=== PATIENT | female | born 1975 | race Two or more races ===

== ENCOUNTER 2017-12-30 20:06 | Emergency (ER) | payer MEDICAID ==
[~2017-12-30] VITALS: Ht 172.7 cm; Wt 117.9 kg
[~2017-12-30 20:06] MED LIST: ALPR0.25 PO; BENA20TA14 PO; GABA300C PO; HCTZ25T; INSLISPI SC; METF-370 PO; TRAM50TA2 PO
[2017-12-30 20:39] VITALS: BP 157/90
[2017-12-30 21:26] LABS: Basophils # (auto) 0.1 uL; Eosinophils # (auto) 0.4 uL; Eosinophils % (auto) 3.6 % (0.0-7.0); Hematocrit 37.9 % (36.0-46.0); Hemoglobin 12.4 g/dL (12.2-16.2); Lymphocytes # (auto) 1.6 uL; Lymphocytes % (auto) 15.1 % (10.0-50.0); Mean Corpuscular Hemoglobin 27.7 pg (28.0-32.0); Mean Corpuscular Hgb Conc. 32.7 g/dL (32.0-36.0); Mean Corpuscular Volume 84.8 fL (80.0-100.0); Monocytes # (auto) 0.7 uL; Monocytes % (auto) 6.7 % (0.0-12.0); Neutrophils # (auto) 7.7 uL; Neutrophils % (auto) 73.6 % (37.0-80.0); Nucleated Red Blood Cells % 0.1 %; Platelet Count (auto) 301 10^3/uL (140-450); Red Blood Cells 4.46 10^6/uL (4.0-5.20); Red Cell Distribution Width 14.3 % (11.8-14.3); White Blood Cell 10.4 10^3/uL (4.4-10.8)
[2017-12-30 21:40] LABS: Albumin 2.6 g/dL (3.4-5.0); BUN/Creatinine Ratio 13.3; Calcium 8.6 mg/dL (8.5-10.1)
[2017-12-30 21:41] LABS: Potassium 4.8 mmol/L (3.5-5.1)
[2017-12-30 21:42] LABS: Bilirubin, Total 0.2 mg/dL (0.2-1.0); Total Protein 8.1 g/dL (6.4-8.2)
[2017-12-30 21:52] LABS: Urine Bacteria FEW /hpf (None Seen); Urine Blood TRACE /uL (Negative); Urine WBC 7 /hpf (0 - 5)
== END 2017-12-31 01:29 | disposition left against medical advice (07) ==
LOC: ER 20:12
DX: M79.671 Pain in right foot (principal); Z53.21 Procedure and treatment not carried out due to patient leaving prior to being seen by health care provider
CPT/HCPCS: 36415; 80053; 81001; 81025; 82010; 82962; 83605; 85025; 87040

== ENCOUNTER 2018-03-02 14:36 | Emergency (ER) | payer MEDICAID ==
[~2018-03-02] VITALS: Ht 172.7 cm; Wt 117.9 kg
[2018-03-02 14:48] VITALS: BP 151/75
== END 2018-03-02 17:34 | disposition home or self-care (01) ==
LOC: ER 14:36
DX: Z95.9 Presence of cardiac and vascular implant and graft, unspecified (principal); J45.909 Unspecified asthma, uncomplicated; E11.9 Type 2 diabetes mellitus without complications; I10 Essential (primary) hypertension; Z88.0 Allergy status to penicillin
CPT/HCPCS: 71046; 82962

== ENCOUNTER 2018-03-24 15:03 | Emergency (ER) | payer MEDICAID ==
[~2018-03-24] VITALS: Ht 172.7 cm; Wt 117.9 kg
[2018-03-24 15:09] VITALS: BP 152/103
[2018-03-24] MEDS ORDERED: IPRATROPIUM BROM 0.5 MG/2.5ML INH SOL NEB ONE ×2 (15:15→15:30)
[2018-03-24] MEDS ORDERED: ALBUTEROL SULF 2.5 MG/0.5ML(0.5%) NEB SOLN NEB ONE (15:15)
[2018-03-24] MEDS ORDERED: methylPREDNISolone SOD SUCC 125 MG/2 ML VL IM ONE (15:15)
[2018-03-24] MEDS ORDERED: methylPREDNISolone SOD SUCC 125 MG/2 ML VL ONE (15:15)
[2018-03-24] MEDS ORDERED: KETOROLAC TROMETH 60MG/2ML VIAL IM ONE (16:45)
[2018-03-24] MEDS ORDERED: cefTRIAXone SOD 1,000 MG VL IM ONE (16:45)
[2018-03-24 16:53] LABS: Urine Bacteria MOD /hpf (None Seen); Urine Blood 1+ /uL (Negative); Urine Specific Gravity 1.016 (1.001-1.035); Urine WBC 46 /hpf (0 - 5); Urine WBC Clumps PRESENT /hpf (None Seen)
== END 2018-03-24 17:41 | disposition home or self-care (01) ==
LOC: ER 15:03
DX: J45.909 Unspecified asthma, uncomplicated (principal); N39.0 Urinary tract infection, site not specified; E66.01 Morbid (severe) obesity due to excess calories; E11.9 Type 2 diabetes mellitus without complications; I10 Essential (primary) hypertension; Z68.39 Body mass index [BMI] 39.0-39.9, adult
CPT/HCPCS: 81001; 81002; 94640; 96372; 99284; J0696; J1885; J2930; J7611; J7644